=== PATIENT | male | born 1995 | race Caucasian/White ===

== ENCOUNTER 2021-01-05 12:03 | Emergency (ER) | payer OTHER, SELFPAY ==
[2021-01-05 12:06] VITALS: BP 158/82; PULSE 94; RESP 18; TEMP 36.7; O2SAT 96; BMI 29.6
--- NOTE | 2021-01-05 12:38 | ED.HA ---
HPI - Headache General Chief Complaint: Headache Stated Complaint: headache Time Seen by Provider: 01/05/21 12:19 Source: patient Mode of arrival: ambulatory History of Present Illness HPI Narrative: 25-year-old male with no significant past medical history presenting to the ED complaining of headache since yesterday with associated photophobia and nausea. Admits to migraines in the past as a child. Reports headache not maximal at onset, improved after Motrin initially and then returned. Denies visual changes, blurry vision, visual loss, numbness, tingling, weakness, paresthesias, vomiting, head trauma, taking anticoagulation Related Data Previous Rx's Medication Instructions Recorded aapkoghcze-exahkihszmnul-lhae 1 cap PO Q4-6H PRN 7 Days #14 cap 01/05/21 [Fioricet] Allergies Allergy/AdvReac Type Severity Reaction Status Date / Time codeine [CODEINE] Allergy Unknown UNKNOWN Verified 01/05/21 12:06 Review of Systems Review of Systems: Constitutional: No Fever, No Chills ENT/Mouth: No Hearing loss, No Ear Pain, No Nasal Congestion,No Swallowing Difficulty Eyes: No Eye Pain, No Swelling, No Redness, No Vision Changes Cardiovascular: No Chest Pain, No SOB Respiratory: No Cough Gastrointestinal: +Nausea, No Vomiting, No Constipation, No Abdominal pain Musculoskeletal: No joint pain, No Myalgias, No Joint Swelling Skin: No Skin Lesions, No rash Neuro: No Weakness, No Numbness, No Paresthesias, No Loss of Consciousness, No Dizziness, No Headache Yes all other systems are reviewed and are negative Neurologic: Denies Abnormal speech present [facility] Past Medical History Attestation statement: The following information was validated with the patient. Medical History (Updated 01/05/21 @ 14:21 by GALO Norris) Patient denies medical problems Social History Social History Alcohol intake: never Smoking Status: Never smoker Use of substances other than those prescribed or required for medical reasons: No Advance Directives: No Advance Directives Information Provided: No Physical Exam Vital Signs: Vital Signs: Last Vital Signs Temp 98.0 F 01/05/21 12:06 Pulse 94 01/05/21 12:06 Resp 18 01/05/21 12:06 BP 158/82 H 01/05/21 12:06 Pulse Ox 96 01/05/21 12:06 Body Mass Index 29.6 Const: General: cooperative, healthy appearing, comfortable and no acute distress Orientation/consciousness: patient oriented x3 Limitations: no limitations HENMT: Head: Yes normal to inspection Ears: hearing grossly normal bilaterally General nose exam: Normal external nose present Face and sinus: Yes normal facial exam Eyes: General: appearance normal, both eyes and all related structures Pupils: Equal, round and reactive pupils present EOM: EOMs intact bilaterally Neck: Neck: Yes normal visual inspection, Yes no lymphadenopathy and Yes no meningeal signs Resp: Effort & Inspection: normal respiratory effort Cardio: Rate: regular rate Skin: Rashes: no rashes Wounds: no wounds Neuro: General: patient oriented x3, gait normal, tone normal, no meningeal signs, no focal motor deficits and CN's II-XI intact bilaterally Cranial nerves: Yes Equal, round and reactive pupils present Cognition (Neuro): normal cognition Speech: No Abnormal speech present Gait exam (Neuro): Normal gait present Motor exam (neuro): 5/5 motor strength present throughout Extrem: General: Yes normal to inspection Course Course Course Narrative: -labs unremarkable. Patient reports symptomatic improvement, requesting to be discharged. Worrisome signs and symptoms and strict return precautions discussed. Verbalized understanding feel safe for discharge home MDM - Headache MDM Narrative Medical decision making narrative: On exam VSS, NAD/well-appearing, no focal neuro deficits, no meningeal signs. Likely migraine headache. Low concern for SAH/meningitis/encephalitis/CVT Plan: Labs, symptomatic tx, reassess Differential Diagnosis Differential diagnosis: Likely migraine, tension headache and headache; Unlikely subarachnoid hemorrhage and meningitis Medical Records Attestation: I reviewed the patient's medical records. Lab Data Attestation: I reviewed the patient's lab results. Result diagrams: 01/05/21 13:05 01/05/21 13:05 Labs: Lab Results 01/05/21 01/05/21 Range/Units 13:05 13:05 WBC 6.9 (4.8-10.8) X10*3/uL RBC 4.97 (4.60-5.80) X10*6/uL Hgb 14.9 (14.0-18.0) g/dl Hct 44.7 (42-52) % MCV 89.9 (80-98) fL MCH 30.0 (27.0-33.0) pg MCHC 33.3 (31.0-36.0) g/dl RDW 12.6 (11.0-16.0) % Plt Count 260 (160-400) X10*3/uL MPV 11.2 (9.4-12.4) fL Immature Gran % (Auto) 0.3 (0.0-0.4) % Neut % (Auto) 65.8 (45-73) % Lymph % (Auto) 24.0 (20-40) % [place] % (Auto) 8.9 (2-11) % Eos % (Auto) 0.6 (0-4) % Baso % (Auto) 0.4 (0-2) % Lymph # (Auto) 1.7 (1.2-4.9) X10*3/uL [place] # (Auto) 0.6 (0.1-1.2) X10*3/uL Eos # (Auto) 0.0 (0.0-0.4) X10*3/uL Baso # (Auto) 0.0 (0.0-0.2) X10*3/uL Abs Immat Gran (auto) 0.02 (0.00-0.03) X10*3/uL Absolute Neuts (auto) 4.6 (2.0-8.3) X10*3/uL Absolute Nucleated RBC 0.000 (0.0-0.012) X10*3/uL Nucleated RBC % (auto) 0.0 (0.0-0.2) /100WBC Sodium 141 (135-145) mmol/L Potassium 4.5 (3.3-5.1) mmol/L Chloride 105 (96-108) mmol/L Carbon Dioxide 29 (22-29) mmol/L Anion Gap 12 (12-20) BUN 10 (9-16) mg/dL Creatinine 1.05 (0.5-1.4) mg/dL Estim Creat Clear Calc 118.2 Estimated GFR > 60 Random Glucose 98 (60-115) mg/dL Calcium 9.6 (8.4-10.2) mg/dL Discharge Plan Discharge Clinical Impression: Headache Patient Disposition: Home, Self-Care Instructions: Acute Headache (ED) Additional Instructions: Your blood work was reassuring today in the ED. make sure staying hydrated at home. Your Fioricet is a combination headache medication, take at home as needed for headaches In addition you can take ibuprofen be aware Fioricet has Tylenol mixed in, do not exceed 4 g of Tylenol 1 today Follow up with her doctor If her symptoms persist or worsen, you have constant worsening headache, nausea/vomiting, visual change or loss, numbness, tingling, or weakness return to the ED Prescriptions: New lkuebpvtyp-cebelhsxuamjj-tzol [Fioricet] 50-300-40 mg capsule 1 cap PO Q4-6H PRN (Reason: headache) 7 Days Qty: 14 RF: 0 Referrals: ED Physician,Generic [Emergency Provider] - 2 days
[2021-01-05] MEDS: Ketorolac Tromethamine 15 MG/ML VIAL IVPUSH (13:11)
[2021-01-05] MEDS: Metoclopramide HCl 10 MG/2 ML VIAL IVPUSH (13:12)
[2021-01-05] MEDS: 0.9 % Sodium Chloride 1,000 ML 999 ML IVCONT (13:12)
[2021-01-05 13:35] LABS: MANUAL DIFF FLAG NO
[2021-01-05 13:41] LABS: Basophils Percent Auto 0.4 % (0-2); Eosinophils Percent Auto 0.6 % (0-4); Hematocrit 44.7 % (42-52); Hemoglobin 14.9 g/dl (14.0-18.0); Imm Gran Abs Auto 0.02 X10*3/uL (0.00-0.03); Imm Gran Pct Auto 0.3 % (0.0-0.4); Lymphocytes Absolute Auto 1.7 X10*3/uL (1.2-4.9); Mean Corpuscular HGB Conc 33.3 g/dl (31.0-36.0); Mean Corpuscular Volume 89.9 fL (80-98); Mean Platelet Volume 11.2 fL (9.4-12.4); Monocytes Absolute Auto 0.6 X10*3/uL (0.1-1.2); Monocytes Percent Auto 8.9 % (2-11); Neutrophils Absolute Auto 4.6 X10*3/uL (2.0-8.3); Neutrophils Percent Auto 65.8 % (45-73); Platelet Count 260 X10*3/uL (160-400); Red Blood Count 4.97 X10*6/uL (4.60-5.80); Red Cell Distribution Width 12.6 % (11.0-16.0); White Blood Count 6.9 X10*3/uL (4.8-10.8)
[2021-01-05 14:19] LABS: Anion Gap 12 (12-20); Blood Urea Nitrogen 10 mg/dL (9-16); Calcium 9.6 mg/dL (8.4-10.2); Carbon Dioxide 29 mmol/L (22-29); Chloride 105 mmol/L (96-108); Creatinine Clr Calc Pharmacy 118.2; Estimated Glomerular Filt Rate > 60; Glucose Random 98 mg/dL (60-115); Potassium 4.5 mmol/L (3.3-5.1); Sodium 141 mmol/L (135-145)
== END 2021-01-05 14:59 | disposition home or self-care (01) ==
PROVIDERS: Physician Assistant; Emergency Provider Emergency Medicine
DX: R51.9 Headache, unspecified (principal); Z79.899 Other long term (current) drug therapy
CPT/HCPCS: 36415; 80048; 85025; 96365; 96375; 99283; 99284; J1885; J2765